=== PATIENT | male | born 1990 | race American Indian/Alaskan Native ===

== ENCOUNTER 2018-02-17 22:38 | Emergency (ER) | payer SELFPAY ==
[2018-02-18 00:23] VITALS: BP 130/83
[2018-02-18] MEDS ORDERED: MOTRIN PO ONE (00:24)
--- NOTE | 2018-02-18 00:57 | XRay Report ---
FINAL REPORT PROCEDURE: XR WRIST 3+V LT TECHNIQUE: LEFT wrist radiographs, including AP, lateral, and oblique views. CPT 70671 HISTORY: left wrist swelling and pain COMPARISON: No prior studies are available for comparison. FINDINGS: Fracture (s) and/or Dislocation(s): There is a nondisplaced fracture of the distal radius. The ulna is intact. The carpal bones and metacarpal bones are intact.. There is no joint dislocation. Alignment: Normal . Joint space(s): Normal . Soft tissues: There is generalized soft tissue swelling.. Bone mineralization: Normal . Foreign bodies: None . IMPRESSION: Nondisplaced fracture of the distal radius..
[2018-02-18] MEDS ORDERED: ULTRAM ONE (05:34)
[2018-02-18] MEDS ORDERED: ULTRAM PO ONE (05:35)
--- NOTE | 2018-02-18 05:51 | Emergency Department Report ---
Upper Extremity - [facility] Chief Complaint: Extremity Injury, Upper Stated Complaint: LEFT WRIST PAIN Time Seen by Provider: 02/18/18 05:46 Upper Extremity: Left Wrist (pain swelling aching status post ground-level fall) Occurred When: Today Mechanism: Fall Symptoms: Yes Pain with Movement, Yes Limited Range of Movement (L Che), Yes Swelling, No Deformity, No Numbness, No Weakness, No Bruising/Ecchymosis, No Laceration or Abrasion Other History: Patient advises he fell down 2 steps while moving furniture impacting his left hand : Wrist pain and swelling immediately ED Review of Systems ROS: Stated complaint: LEFT WRIST PAIN Other details as noted in HPI Constitutional: denies: chills, fever Eyes: denies: eye pain, eye discharge, vision change ENT: denies: ear pain, throat pain Respiratory: denies: cough, shortness of breath, wheezing Cardiovascular: denies: chest pain, palpitations Endocrine: no symptoms reported Gastrointestinal: denies: abdominal pain, nausea, diarrhea Genitourinary: denies: urgency, dysuria Musculoskeletal: joint swelling, myalgia Skin: as per HPI Neurological: denies: headache, weakness, paresthesias Psychiatric: denies: anxiety, depression Hematological/Lymphatic: as per HPI ED Past Medical Hx - Past Medical History Previous Medical History?: No - Surgical History Past Surgical History?: No - Social History Smoking Status: Current Every Day Smoker Substance Use Type: None - Medications Home Medications: Home Medications Medication Instructions Recorded Confirmed Last Taken Type HYDROcodone/ACETAMINOPHEN 1 each PO QID PRN #12 tablet 02/18/18 Unknown Rx [Hydrocodone-Acetamin 5-325 mg] Upper Extremity Exam - Exam General: Vital signs noted. No distress. Alert and acting appropriately. Head and Torso: No HEENT Abnormality, No Neck Tenderness, No Chest/Lungs Abnormality, No Abdominal Tenderness, No Back Tenderness Shoulder Exam: Yes Normal Range of Motion in Shoulder, No Shoulder Tenderness, No Clavicle Tenderness, No Shoulder Deformity, No AC Joint Tenderness Arm Exam: No Arm/Humerus Tenderness, No Arm Deformity Elbow: No Elbow Tenderness, No Normal Range of Motion in Elbow, No Elbow Deformity Forearm: No Forearm Tenderness, No Forearm Deformity, No Pain with Pronation, No Pain with Supination Wrist: Yes Wrist Tenderness, Yes Normal ROM in Wrist, No Wrist Deformity, No Snuffbox Tenderness, No Pain with Axial Thumb Compression Hand: Yes Hand Tenderness, Yes Digit Tenderness, Yes Digit(s) Deformity, No Hand Deformity, No Tendon Dysfunction CMS Exam: Yes Broken Skin, Yes Normal Distal Pulses, Yes Normal Capillary Refill , Yes Normal Distal Sensation ED Course Vital Signs 02/18/18 00:18 Temperature 98.4 F Pulse Rate 61 Respiratory 18 Rate Blood Pressure 130/83 O2 Sat by Pulse 100 Oximetry ED Medical Decision Making - Radiology Data Radiology results: report reviewed, image reviewed Nondisplaced fracture of the distal radius left - Medical Decision Making Sugar tong splint applied appropriately a 2 finger insertion Splint check is complete pain decreased to 2/10 is no snuffbox tenderness no tenderness to thumb axial loading flexion and extension of wrist is restricted by pain abduction and abduction flexion and extension of all digits intact distal pulses intact PHYSICAL THERAPY ASST is less than 3 seconds bilaterally there is no obvious deformity Critical care attestation.: If time is entered above; I have spent that time in minutes in the direct care of this critically ill patient, excluding procedure time. ED Disposition Clinical Impression: Closed fracture of distal end of left radius Qualifiers: Encounter type: initial encounter Fracture morphology: unspecified fracture morphology Qualified Code(s): S52.502A - Unspecified fracture of the lower end of left radius, initial encounter for closed fracture Disposition: TO HOME OR SELFCARE Is pt being admited?: No Does the pt Need Aspirin: No Condition: Critical Instructions: Wrist Fracture in Adults (ED), Splint Care (ED) Prescriptions: HYDROcodone/ACETAMINOPHEN [Hydrocodone-Acetamin 5-325 mg] 1 each PO QID PRN #12 tablet PRN Reason: Pain , Severe (7-10) Referrals: MARCELINA MCGEE MD [Staff Physician] - 3-5 Days Forms: Work/School Release Form(ED) Time of Disposition: 05:57
== END 2018-02-18 06:10 | disposition home or self-care (01) ==
LOC: ED 22:38
DX: S52.502A Unspecified fracture of the lower end of left radius, initial encounter for closed fracture (principal); F17.200 Nicotine dependence, unspecified, uncomplicated; W10.9XXA Fall (on) (from) unspecified stairs and steps, initial encounter; Y93.D3 Activity, furniture building and finishing; Y92.89 Other specified places as the place of occurrence of the external cause; Y99.8 Other external cause status
CPT/HCPCS: 99284